=== PATIENT | female | born 1990 | race Caucasian/White ===

== ENCOUNTER 2020-01-27 18:55 | Emergency (ER) | payer BC, OTHER ==
[2020-01-27] MEDS ORDERED: Bacitracin 1 PK ONE (19:08)
[2020-01-27] MEDS ORDERED: Lidocaine 2% 20 ml MDV ONE (19:09)
== END 2020-01-27 19:30 | disposition home or self-care (01) ==
LOC: MADERS 18:55
DX: S61.412A Laceration without foreign body of left hand, initial encounter (principal); Z79.899 Other long term (current) drug therapy; W45.8XXA Other foreign body or object entering through skin, initial encounter
CPT/HCPCS: 12001